=== PATIENT | female | born 1935 | race Caucasian/White ===

== ENCOUNTER 2018-09-15 05:22 | Inpatient (IN) | payer MEDICARE, BC ==
[2018-09-15] VITALS (62 sets, daily range): BP systolic 63–144; BP diastolic 35–101; PULSE 62–128; RESP 9–27; Ht 157.5 cm; Wt 51.2 kg
[~2018-09-15] VITALS: Ht 157.5 cm; Wt 51.2 kg
--- NOTE | 2018-09-15 06:07 | HPN ---
Date/Time of Note Date/Time of Note DATE: 09/15/18 TIME: 06:07 Interval H&P Admission Note Pt. seen H&P reviewed: No system changes CHELE GRIFFIN MD Sep 15, 2018 06:07
[2018-09-15] MEDS ORDERED: ESTR1TAB23 PO (06:45)
[2018-09-15] MEDS ORDERED: ZOC10 PO (06:45)
--- NOTE | 2018-09-15 06:58 | PREAC ---
Date/Time of Note Date/Time of Note DATE: 09/15/18 TIME: 06:52 Anesthesia Eval and Record Evaluation Time Pre-Procedure Interview DATE: 09/15/18 TIME: 06:52 Age 83 Sex female NPO: 8 hrs Preoperative diagnosis right shoulder rotator cuff tear Planned procedure operative arthroscopy, extensive debridement, decompression, michelle precedure, rotator cuff repair, right shoulder Past Medical History Past Medical History: Includes Cardio: Dyslipidemia Musculoskeletal: Osteoarthritis Surgery & Anesthesia Issues No known issue Meds Anticoagulation: No Beta Carlene within 24 hr: No Reason Beta Carlene not given: Pt. not on B-Carlene Reported Medications Estradiol* (Estrace*) 1 Mg Tablet, 1 MG PO DAILY, TAB 09/15/18 Simvastatin (Simvastatin) 10 Mg Tablet, 10 MG PO DAILY, #30 TAB 09/15/18 Meds reviewed: Yes Allergies Coded Allergies: No Known Allergy (Unverified , 09/15/18) Allergies Reviewed: Yes Labs/Studies Labs Reviewed: Reviewed by anesthesiologist test: N/A Pre-procedure Exam Last vitals Vital Signs Date Temp Pulse Resp B/P (MAP) Pulse Ox O2 O2 Flow FiO2 Time Delivery Rate 09/15/18 97.9 68 16 131/60 98 Room Air 06:29 (83) Airway: Adequate mouth opening, Adequate thyromental dist Mallampati: Mallampati II Teeth: Normal Lung: Normal Heart: Normal ASA Physical Status ASA physical status: 2 Emergency: None Planned Anesthetic General/MAC: ETT Nerve block: Brachial plexus (right) Planned Pain Management Single shot nerve block, Parenteral pain med Pre-operative Attestations Prior to commencing anesthesia and surgery, the patient was re-evaluated, there was verification of: *The patient's identity *The results of appropriate recent lab work and preoperative vital signs *The above evaluation not changing prior to induction *Anesthetic plan, risk benefits, alternative and complications discussed with patient/family; questions answered; patient/family understands, accepts and wishes to proceed. ABEL HESTER MD Sep 15, 2018 06:58
[2018-09-15] MEDS ORDERED: LACT1CAP17 PO (07:17)
[2018-09-15] MEDS ORDERED: SEVOFLURANE 15 MIN ONE (07:20)
[2018-09-15] MEDS ORDERED: ROPIVACAINE 0.5 % 30 ML VIAL ONE (07:23)
[2018-09-15] MEDS ORDERED: MIDAZOLAM 1 MG/ML 2 ML INJ ONE (07:34)
[2018-09-15] MEDS ORDERED: FENTAnyl 50 MCG/ML VIAL ONE ×2 (07:38→07:39)
[2018-09-15] MEDS ORDERED: PHENYLephrine (100 MCG/ML) 10ML SYG ONE (07:52)
[2018-09-15] MEDS ORDERED: DEXAMETHASONE 4 MG/ML 5 ML INJ ONE (08:07)
[2018-09-15] MEDS ORDERED: ONDANSETRON 4 MG INJ ONE (08:07)
[2018-09-15] MEDS ORDERED: FAMOTIDINE 20 MG INJ ONE (08:10)
[2018-09-15] MEDS ORDERED: EPHEDrine 25 MG/5 ML SYG ONE (08:13)
[2018-09-15] MEDS ORDERED: ROCURONIUM 50 MG INJ ONE (08:14)
[2018-09-15] MEDS ORDERED: SUCCINYLCHOLINE CHLORIDE 100 MG/5 ML SYG IV ONE (08:14)
[2018-09-15] MEDS ORDERED: LIDOCAINE 2% (SDV) 5 ML INJ ONE (08:14)
[2018-09-15] MEDS ORDERED: PROPOFOL 20 ML ONE (08:14)
[2018-09-15] MEDS ORDERED: CEFAZOLIN 1 GM INJ ONE ×2 (08:40→11:29)
[2018-09-15] MEDS ORDERED: POVIDONE IODINE 10% 28.4 GM OINT ONE (09:55)
[2018-09-15] MEDS ORDERED: OXYCODONE/ACETAMINOPHEN (5/325) TAB PO PRN (10:30)
[2018-09-15] MEDS ORDERED: EPHEDrine 25 MG/5 ML SYG IV PRN (10:30)
[2018-09-15] MEDS ORDERED: FENTAnyl 50 MCG/ML VIAL IV PRN (10:30)
[2018-09-15] MEDS ORDERED: ONDANSETRON 4 MG INJ IV PRN ×2 (10:30→12:00)
[2018-09-15] MEDS ORDERED: MEPERIDINE 25 MG INJ IV PRN (10:30)
[2018-09-15] MEDS ORDERED: DIPHENHYDRAMINE 50 MG INJ IV PRN (10:30)
[2018-09-15] MEDS ORDERED: HYDROmorphONE 1 MG/5 ML IV SYRINGE IV PRN (10:30)
[2018-09-15] MEDS ORDERED: NEOSTIGMINE 3 MG/3 ML SYRINGE ONE (11:29)
[2018-09-15] MEDS ORDERED: GLYCOPYRROLATE 0.4 MG INJ ONE (11:29)
[2018-09-15] MEDS: SOD CHLORIDE 0.9% 1,000 ML IV SCH ×2 (11:43→23:27)
--- NOTE | 2018-09-15 11:43 | OPPN ---
Date/Time of Note Date/Time of Note DATE: 09/15/18 TIME: 11:41 Operative Report Preoperative Diagnosis Right shoulder rotator cuff tear, AC arthritis, biceps tear Postoperative Diagnosis same Operation/Procedure Performed Right shoulder SMITHA, michelle VAZQUEZ, rotator cuff repair with 3 anchors Surgeon see signature line clinical research assistant MD Shar Anesthesia: general, other Estimated blood loss: minimal Transfusion Required none Specimen none Grafts/Implants 3 x threvo anchors Complications none CHELE GRIFFIN MD Sep 15, 2018 11:43
[2018-09-15] MEDS ORDERED: BISACODYL 10 MG SUPP PR PRN (12:00)
[2018-09-15] MEDS ORDERED: morphine 10 MG INJ IV PRN (12:00)
[2018-09-15] MEDS ORDERED: HYDROmorphONE 0.2 MG/ML PCA IV SCH ×2 (12:00→12:40)
[2018-09-15] MEDS ORDERED: DIPHENHYDRAMINE 25 MG CAP PO PRN (12:00)
--- NOTE | 2018-09-15 12:01 | PAC ---
Date/Time of Note Date/Time of Note DATE: 09/15/18 TIME: 12:00 Post-Anesthesia Notes Post-Anesthesia Note Last documented vital signs Vital Signs Date Temp Pulse Resp B/P (MAP) Pulse Ox O2 O2 Flow FiO2 Time Delivery Rate 09/15/18 97.9 68 16 131/60 98 Room Air 06:29 (83) Activity: WNL Respiratory function: WNL Cardiovascular function: WNL Mental status: Baseline Pain reasonably controlled: Yes Hydration appropriate: Yes Nausea/Vomiting absent: Yes Comments BP: 139/70 HR: 80 RR: 15 T: 97.8 SaO2: 100% ABEL HESTER MD Sep 15, 2018 12:01
[2018-09-15] MEDS: HYDROmorphONE 1 MG/5 ML IV SYRINGE IV PRN ×3 (12:10→12:23)
[2018-09-15] MEDS: CEFAZOLIN 1 GM/50 ML (PMX) 50 ML IVPB SCH ×2 (12:23→21:08)
[2018-09-15] MEDS ORDERED: ALBUMIN HUMAN 5% 250 ML ONE (14:12)
[2018-09-15] MEDS ORDERED: ALBUMIN HUMAN 5% 250 ML IV ONE (14:30)
[2018-09-15] MEDS ORDERED: SOD CHLORIDE 0.9% 250 ML IV ONE (15:00)
[2018-09-15] MEDS ORDERED: PHENYLephrine 20MG IN 250 ML 250 ML IV SCH (15:30)
--- NOTE | 2018-09-15 15:45 | CONS ---
Assessment/Plan Assessment/Plan Assessment/Plan (Daily) Med consult dict Post op rapid atrial fib and assoc hypotension. W/U in progress. Mg, TSH, Troponin, echo. Always concern for PE, NIVVS ordered. Family member has MTFHR gene mutation. Will quiz her if she has been tested. No hx prior arrhythmia, DVT, PE, coronary dz, HBP. Consultation Date/Type/Reason Admit Date/Time Sep 15, 2018 at 11:43 Date/Time of Note DATE: 09/15/18 TIME: 15:43 Past Medical History Home Meds Reported Medications Lactobac Cmb #3/Fos/Pantethine (PROBIOTIC & ACIDOPHILUS CAP) 1 Each Capsule, 1 CAP PO DAILY, CAP 09/15/18 Estradiol* (Estrace*) 1 Mg Tablet, 1 MG PO DAILY, TAB 09/15/18 Simvastatin (Simvastatin) 10 Mg Tablet, 5 MG PO DAILY, #30 TAB 09/15/18 Medications Current Medications Senna/Docusate Sodium (Senokot-S) 1 tab BID PO ; Start 09/15/18 at 21:00 Magnesium Hydroxide (Milk Of Mag) 30 ml HS PO ; Start 09/17/18 at 21:00 Bisacodyl (Dulcolax Supp) 10 mg DAILY PRN [place] CONSTIPATION; Start 09/15/18 at 12:00 Sodium Chloride 1,000 ml @ 100 mls/hr Q10H IV Last administered on 09/15/18at 11:43; Admin Dose 100 MLS/HR; Start 09/15/18 at 11:43 Oxycodone/ Acetaminophen (Percocet (5/ 325)) 2 tab Q4H PRN PO PAIN; Start 09/15/18 at 12:00 Morphine Sulfate (morphine) 5 mg Q4H PRN IV PAIN LEVEL 7-10; Start 09/15/18 at 12:00 Cefazolin Sodium 50 ml @ 100 mls/hr Q8H IVPB Last administered on 09/15/18at 12:23; Admin Dose 100 MLS/HR; Start 09/15/18 at 12:00; Stop 09/17/18 at 04:29 Ondansetron HCl (Zofran Inj) 4 mg Q4H PRN IV NAUSEA AND/OR VOMITING; Start 09/15/18 at 12:00 Diphenhydramine HCl (Benadryl) 25 mg Q4H PRN PO ITCHING; Start 09/15/18 at 12:00 Rivaroxaban (Xarelto) 10 mg WITH DINNER PO ; Start 09/16/18 at 18:00 Hydromorphone HCl (Dilaudid CONTROL OPERATOR FLOW COAT) 0.2 MG LOAD 0 MG/ ... Q4PCA IV Last administered on 09/15/18at 13:09; Admin Dose 6 MG; Start 09/15/18 at 12:40 Sodium Chloride 250 ml @ 250 mls/hr Q1H ONCE IV Last administered on 09/15/18at 15:00; Admin Dose 250 MLS/HR; Start 09/15/18 at 15:00; Stop 09/15/18 at 15:59 Phenylephrine HCl 250 ml @ 75 mls/hr TITRATE IV ; Start 09/15/18 at 15:30 Estradiol (Estrace) 1 mg DAILY PO ; Start 09/16/18 at 09:00 Atorvastatin Calcium (Lipitor) 10 mg DAILY@21 PO ; Start 09/15/18 at 21:00 Allergies: Coded Allergies: No Known Allergy (Unverified , 09/15/18) Social History Smoking Status: Never smoker Exam/Review of Systems Exam Vitals Vital Signs Date Temp Pulse Resp B/P (MAP) Pulse Ox O2 O2 Flow FiO2 Time Delivery Rate 09/15/18 106 12 69/49 (56) 98 Mask 14:38 Nasal Cannula 09/15/18 97.8 13:34 Results Result Diagram: 09/15/18 1514 Results 24hrs Laboratory Tests Test 09/15/18 15:14 White Blood Count 7.8 Red Blood Count 3.81 L Hemoglobin 11.0 L Hematocrit 34.7 L Mean Corpuscular Volume 91.1 Mean Corpuscular Hemoglobin 28.9 L Mean Corpuscular Hemoglobin Concent 31.7 L Red Cell Distribution Width 13.3 Platelet Count 166 Mean Platelet Volume 11.0 H Immature Granulocytes % 0.600 H Neutrophils % 89.5 H Lymphocytes % 8.0 L Monocytes % 1.4 Eosinophils % 0.1 Basophils % 0.4 Nucleated Red Blood Cells % 0.0 Immature Granulocytes # 0.050 H Neutrophils # 7.0 Lymphocytes # 0.6 L Monocytes # 0.1 L Eosinophils # 0.0 Basophils # 0.0 Nucleated Red Blood Cells # 0.0 Magnesium Level 1.7 Troponin I Pending Thyroid Stimulating Hormone (TSH) Pending Medications Medication Current Medications Senna/Docusate Sodium (Senokot-S) 1 tab BID PO ; Start 09/15/18 at 21:00 Magnesium Hydroxide (Milk Of Mag) 30 ml HS PO ; Start 09/17/18 at 21:00 Bisacodyl (Dulcolax Supp) 10 mg DAILY PRN [place] CONSTIPATION; Start 09/15/18 at 12:00 Sodium Chloride 1,000 ml @ 100 mls/hr Q10H IV Last administered on 09/15/18at 11:43; Admin Dose 100 MLS/HR; Start 09/15/18 at 11:43 Oxycodone/ Acetaminophen (Percocet (5/ 325)) 2 tab Q4H PRN PO PAIN; Start 09/15/18 at 12:00 Morphine Sulfate (morphine) 5 mg Q4H PRN IV PAIN LEVEL 7-10; Start 09/15/18 at 12:00 Cefazolin Sodium 50 ml @ 100 mls/hr Q8H IVPB Last administered on 09/15/18at 12:23; Admin Dose 100 MLS/HR; Start 09/15/18 at 12:00; Stop 09/17/18 at 04:29 Ondansetron HCl (Zofran Inj) 4 mg Q4H PRN IV NAUSEA AND/OR VOMITING; Start 09/15/18 at 12:00 Diphenhydramine HCl (Benadryl) 25 mg Q4H PRN PO ITCHING; Start 09/15/18 at 12:00 Rivaroxaban (Xarelto) 10 mg WITH DINNER PO ; Start 09/16/18 at 18:00 Hydromorphone HCl (Dilaudid CONTROL OPERATOR FLOW COAT) 0.2 MG LOAD 0 MG/ ... Q4PCA IV Last administered on 09/15/18at 13:09; Admin Dose 6 MG; Start 09/15/18 at 12:40 Sodium Chloride 250 ml @ 250 mls/hr Q1H ONCE IV Last administered on 09/15/18at 15:00; Admin Dose 250 MLS/HR; Start 09/15/18 at 15:00; Stop 09/15/18 at 15:59 Phenylephrine HCl 250 ml @ 75 mls/hr TITRATE IV ; Start 09/15/18 at 15:30 Estradiol (Estrace) 1 mg DAILY PO ; Start 09/16/18 at 09:00 Atorvastatin Calcium (Lipitor) 10 mg DAILY@21 PO ; Start 09/15/18 at 21:00 FRED MARKS MD Sep 15, 2018 15:45
--- NOTE | 2018-09-15 16:46 | CONS ---
DATE OF ADMISSION: 09/15/2018 DATE OF CONSULTATION: 09/15/2018 TYPE OF CONSULTATION: Medical. Dear Dr. Griffin: Thank you very much for allowing me to evaluate this 83-year-old female who is postop right shoulder rotator cuff repair, who has now developed rapid atrial fibrillation and hypotension. HISTORICAL EVENTS: As you well know, this patient did suffer an injury to her right shoulder and has had ongoing pain for at least a year. Your evaluation revealed a supraspinatus tendon tear and lanie ps tendon tear. A steroid injection provided no significant relief and because of continued pain and restriction in motion, elected to proceed with your recommended surgical intervention. The surgery was uncomplicated per you and she was transferred to recovery. It was while in recovery she suddenly developed a rapid atrial fibrillation at a rate of 120 to 140 and associated hypotension. She has r eceived normal saline at a high flow rate and with this, her fibrillation ventricular response has de creased to about 100 to 110. She presently denies any shortness of breath, chest pain, palpitations, nausea, vomiting, or abdominal pain. Questioning her daughter reveals no prior history of irregular heartbeat, coronary artery disease, diabetes, pulmonary embolism or blood clots. MEDICATIONS: Prior to admission includes: 1. Fluconazole as needed. 2. Xanax 0.25 b.i.d. p.r.n. 3. Zocor 5 mg per day. 4. Atrovent as needed. 5. Estradiol 1 mg per day. 6. Prolia. 7. Naprosyn p.r.n. 8. Zantac 150 at night. PAST MEDICAL HISTORY: 1. Sleep disorder. 2. Gastroesophageal reflux. 3. Hyperlipidemia. 4. Mild aortic and moderate mitral regurgitation. 5. History of sinus bradycardia. 6. Spinal stenosis. 7. History of vasovagal syndrome. PAST SURGICAL HISTORY: Having had a prior appendectomy, bladder suspension and blepharoplasty, bebeto cystectomy, abdominal hysterectomy, lumbar rhizotomy and tonsillectomy. SOCIAL HISTORY: She is . She does not smoke. 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 She does drink alcohol. ALLERGIES: NONE. FAMILY HISTORY: Positive for parkinsonism and stroke as well as factor V Leiden mutation. PHYSICAL EXAMINATION: GENERAL: [place] female in no acute distress. VITAL SIGNS: BP 82/70, pulse irregularly irregular at 106, respirations were 18. She was afebrile. EYES: Extraocular muscles were full. NOSE, MOUTH, AND THROAT: Normal. NECK: Supple. There was no jugular venous distention, thyroid enlargement or adenopathy. Carotids 2+, no bruits. LUNGS: Clear. HEART: Rhythm irregularly irregular. No murmur. No third or fourth sound. ABDOMEN: Nontender. Liver and spleen were not palpable. No mass or tenderness were noted. EXTREMITIES: No edema and no calf tenderness. IMPRESSION: Unstable post right shoulder surgical intervention with now rapid atrial fibrillation that has slowed a bit with normal saline and hypotension. I have reviewed this with cardiology, Dr. Delvalle, and we both agree that the degree of her atrial fibrillation does not account for her hypotension. Until ec hocardiography is obtained, we will support her blood pressure with Jovanni-Synephrine, give her addition al isotonic volume expansion and I will obtain a venous vascular studies. Troponin has been ordered along with TSH and mag. We will follow with you. Dictated By: FRED CAMERON/TRISHA Conf#: [id number] DID#: [id number] CC: CHELE GRIFFIN MD;*EndCC*
--- NOTE | 2018-09-15 18:03 | CONS ---
Assessment/Plan Assessment/Plan Hospital Course (Demo Recall) New onset postoperative atrial fibrillation Postoperative hypotension Status post orthopedic shoulder surgery Patient postoperatively with hypotension and atrial fibrillation. Blood pressure improved initially with IV fluids but then recurrent hypotension. Central line was placed and start on IV pressor of Jovanni-Synephrine. IV pressor requirements are decreasing. Atrial fibrillation is unlikely the etiology of hypotension. Preliminary echocardiogram with normal left ventricular ejection fraction, initial CBC with no significant abnormalities. Titrate IV pressor to maintain SBP greater than 90 and/or map above 60. Patient plan for CT pulmonary angiogram to rule out pulmonary emboli Would hold on any AV aneta blocking agents and current time Check serial CBCs Consultation Date/Type/Reason Admit Date/Time Sep 15, 2018 at 11:43 Type of Consult Cardiology Reason for Consultation Atrial fibrillation and hypertension Date/Time of Note DATE: 09/15/18 TIME: 17:56 Hx of Present Illness This is an 83-year-old female with no significant past medical history who un derwent elective orthopedic surgery of her right shoulder. Postoperatively, patient with hypotension new onset atrial fibrillation. Patient was given IV fluids with mild improvement in hypotension and heart rates but recurrent hypotension was noted. Patient did have a central line placed and IV pressors were started. She denies any current chest pain, shortness of breath, palpitations. She does mention intermittent palpitations in the morning time is been going on over the past few weeks to months. She otherwise denies exertional chest pain or shortness of breath. Denies any dizziness or lightheadedness. 12 point review of systems was performed with all pertinent positives and negatives mentioned above and all else is negative Past Medical History Mild mitral aortic valve regurgitation Dyslipidemia Home Meds Reported Medications Lactobac Cmb #3/Fos/Pantethine (PROBIOTIC & ACIDOPHILUS CAP) 1 Each Capsule, 1 CAP PO DAILY, CAP 09/15/18 Estradiol* (Estrace*) 1 Mg Tablet, 1 MG PO DAILY, TAB 09/15/18 Simvastatin (Simvastatin) 10 Mg Tablet, 5 MG PO DAILY, #30 TAB 09/15/18 Medications Current Medications Senna/Docusate Sodium (Senokot-S) 1 tab BID PO ; Start 09/15/18 at 21:00 Magnesium Hydroxide (Milk Of Mag) 30 ml HS PO ; Start 09/17/18 at 21:00 Bisacodyl (Dulcolax Supp) 10 mg DAILY PRN [place] CONSTIPATION; Start 09/15/18 at 12:00 Sodium Chloride 1,000 ml @ 100 mls/hr Q10H IV Last administered on 09/15/18at 11:43; Admin Dose 100 MLS/HR; Start 09/15/18 at 11:43 Oxycodone/ Acetaminophen (Percocet (5/ 325)) 2 tab Q4H PRN PO PAIN; Start 09/15/18 at 12:00 Morphine Sulfate (morphine) 5 mg Q4H PRN IV PAIN LEVEL 7-10; Start 09/15/18 at 12:00 Cefazolin Sodium 50 ml @ 100 mls/hr Q8H IVPB Last administered on 09/15/18at 12:23; Admin Dose 100 MLS/HR; Start 09/15/18 at 12:00; Stop 09/17/18 at 04:29 Ondansetron HCl (Zofran Inj) 4 mg Q4H PRN IV NAUSEA AND/OR VOMITING; Start 09/15/18 at 12:00 Diphenhydramine HCl (Benadryl) 25 mg Q4H PRN PO ITCHING; Start 09/15/18 at 12:00 Rivaroxaban (Xarelto) 10 mg WITH DINNER PO ; Start 09/16/18 at 17:35 Hydromorphone HCl (Dilaudid NAIL POLISH BRUSH MACHINE FEEDER) 0.2 MG LOAD 0 MG/ ... 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) Family History Significant Family History: no pertinent family hx Social History Smoking Status: Never smoker Exam/Review of Systems Vital Signs Vitals Vital Signs Date Temp Pulse Resp B/P (MAP) Pulse Ox O2 O2 Flow FiO2 Time Delivery Rate 09/15/18 104 16:00 09/15/18 16 75/44 (54) 88 Mask 15:23 09/15/18 8.0 15:18 09/15/18 97.8 13:34 Exam Constitutional: alert, oriented (Falling asleep at times, no apparent distress, family at bedside) Head: normocephalic Respiratory: other (Coarse breath sounds bilaterally, no wheezing) Cardiovascular: irregular rhythm (S1-S2 heard) Gastrointestinal: soft, non-tender, bowel sounds Extremities: other (No significant edema) Labs Result Diagram: 09/15/18 1514 09/15/18 1514 Results 24hrs Laboratory Tests Test 09/15/18 15:14 White Blood Count 7.8 Red Blood Count 3.81 L Hemoglobin 11.0 L Hematocrit 34.7 L Mean Corpuscular Volume 91.1 Mean Corpuscular Hemoglobin 28.9 L Mean Corpuscular Hemoglobin Concent 31.7 L Red Cell Distribution Width 13.3 Platelet Count 166 Mean Platelet Volume 11.0 H Immature Granulocytes % 0.600 H Neutrophils % 89.5 H Lymphocytes % 8.0 L Monocytes % 1.4 Eosinophils % 0.1 Basophils % 0.4 Nucleated Red Blood Cells % 0.0 Immature Granulocytes # 0.050 H Neutrophils # 7.0 Lymphocytes # 0.6 L Monocytes # 0.1 L Eosinophils # 0.0 Basophils # 0.0 Nucleated Red Blood Cells # 0.0 Sodium Level 146 H Potassium Level 3.4 L Chloride Level 117 H Carbon Dioxide Level 21 Anion Gap 8 Blood Urea Nitrogen 14 Creatinine 0.57 Est Glomerular Filtrat Rate mL/min Glucose Level 139 Calcium Level 7.9 L Magnesium Level 1.7 Troponin I < 0.012 Thyroid Stimulating Hormone (TSH) 0.822 Imaging Imaging ECG atrial fibrillation at 106 bpm, normal QRS duration, nonspecific ST abnormalities Medications Medications Current Medications Senna/Docusate Sodium (Senokot-S) 1 tab BID PO ; Start 09/15/18 at 21:00 Magnesium Hydroxide (Milk Of Mag) 30 ml HS PO ; Start 09/17/18 at 21:00 Bisacodyl (Dulcolax Supp) 10 mg DAILY PRN [place] CONSTIPATION; Start 09/15/18 at 12:00 Sodium Chloride 1,000 ml @ 100 mls/hr Q10H IV Last administered on 09/15/18at 11:43; Admin Dose 100 MLS/HR; Start 09/15/18 at 11:43 Oxycodone/ Acetaminophen (Percocet (5/ 325)) 2 tab Q4H PRN PO PAIN; Start at 12:00 Morphine Sulfate (morphine) 5 mg Q4H PRN IV PAIN LEVEL 7-10; Start 09/15/18 at 12:00 Cefazolin Sodium 50 ml @ 100 mls/hr Q8H IVPB Last administered on 09/15/18at 12:23; Admin Dose 100 MLS/HR; Start 09/15/18 at 12:00; Stop 09/17/18 at 04:29 Ondansetron HCl (Zofran Inj) 4 mg Q4H PRN IV NAUSEA AND/OR VOMITING; Start 09/15/18 at 12:00 Diphenhydramine HCl (Benadryl) 25 mg Q4H PRN PO ITCHING; Start 09/15/18 at 12:00 Rivaroxaban (Xarelto) 10 mg WITH DINNER PO ; Start 09/16/18 at 17:35 Hydromorphone HCl (Dilaudid NAIL POLISH BRUSH MACHINE FEEDER) 0.2 MG LOAD 0 MG/ ... Q4PCA IV Last administered on 09/15/18at 13:09; Admin Dose 6 MG; Start 09/15/18 at 12:40 Phenylephrine HCl 250 ml @ 75 mls/hr TITRATE IV Last administered on 09/15/18at 16:32; Admin Dose 75 MLS/HR; Start 09/15/18 at 15:30 Estradiol (Estrace) 1 mg DAILY PO ; Start 09/16/18 at 09:00 Atorvastatin Calcium (Lipitor) 10 mg DAILY@21 PO ; Start 09/15/18 at 21:00 Christian Delvalle DO Sep 15, 2018 18:03
--- NOTE | 2018-09-15 18:10 | RADRPT ---
Echocardiogram Report Patient Name: JAMAL MARTINEZPatient ID: [id number] : 1935 (83y 3m)Study Date: 09/15/2018 3:18:42 PM Gender: FAccession #: [id number] Tech: Idalia Alarcon RDCS Location: PACU Ref.Physician: CHRISTIAN DELVALLE Height(Cm): BSA: Weight(Kg): Quality: Technically Difficult StudyOrder Physician: CHRISTIAN DELVALLE Account #: Procedures: Echocardiographic Report: Transthoracic echocardiogram with complete 2D, M-Mode, and doppler examination. Indications: Hypotension. Measurements: 2D/M Mode Doppler Measurement Value Normal Range Measurement Value Normal Range LVIDd 2D 3.8 [ 3.8 - 5.2 ] cm AV Peak Jules 1.1 [ 100.0 - 170.0 ] cm/sec LVIDs 2D 1.9 [ 2.2 - 3.5 ] cm AV Peak PG 5.0 [ 2.0 - 9.0 ] mmHg LVPWd 2D 1.0 [ 0.6 - 0.9 ] cm LVOT Peak Jules 0.8 [ 70.0 - 110.0 ] cm/sec IVSd 2D 0.9 [ 0.6 - 0.9 ] cm LVOT Peak PG 2.0 [ 2.0 - 6.0 ] mmHg AoR Diam 2D 2.9 [ 2.3 - 3.1 ] cm TR Peak Jules 2.9 [ 100.0 - 280.0 ] cm/sec EDV 2D 63.5 [ 46.0 - 106.0 ] ml TR Peak PG 34.0 mmHg ESV 2D 11.8 [ 14.0 - 42.0 ] ml RVSP 37.0 [ 10.0 - 36.0 ] mmHg EF 2D 81.4 [ 54.0 - 74.0 ] percent RA Pressure 3.0 mmHg LA Dimen 2D 3.6 [ 2.7 - 3.8 ] cm Findings: Left Ventricle: Hyperdynamic left ventricular systolic function. Normal left ventricular cavity size. Normal left ventricular wall thickness. Ejection fraction is visually estimated at 70 %. Abnormal Diastolic Function. Right Ventricle: Normal right ventricular size. Normal right ventricular systolic function. Left Atrium: The left atrium is normal in size. Right Atrium: The right atrium is normal in size. Mitral Valve: Mitral valve leaflets appear mildly thickened. Mild mitral valve regurgitation. Aortic Valve: No hemodynamically significant aortic stenosis by doppler. Aortic cusps appear mildly calcified. Trace aortic valve regurgitation. Tricuspid Valve: Normal appearance of the tricuspid valve. The estimated Peak RVSP is 37 mmHg. There is mild to moderate tricuspid regurgitation. Pulmonic Valve: Pulmonic valve not well visualized. Pericardium: Normal pericardium with no significant pericardial effusion. Aorta: Normal aortic root. IVC: Normal size and normal respiratory collapse consistent with normal right atrial pressure. Conclusions: Hyperdynamic left ventricular systolic function. Normal left ventricular cavity size. Normal left ventricular wall thickness. Ejection fraction is visually estimated at 70 %. Abnormal Diastolic Function. Normal right ventricular size. Normal right ventricular systolic function. The left atrium is normal in size. The right atrium is normal in size. Mild mitral valve regurgitation. No hemodynamically significant aortic stenosis by doppler. Trace aortic valve regurgitation. The estimated Peak RVSP is 37 mmHg. There is mild to moderate tricuspid regurgitation. Normal pericardium with no significant pericardial effusion. Electronically Signed By: Christian Delvalle 2018-09-15 18:10:27 PDT
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
[2018-09-15] MEDS ORDERED: SOD CHLORIDE 0.9% 100 ML ONE (18:50)
[2018-09-15] MEDS: SENNA/DOCUSATE NA (8.6MG/50MG) TAB PO SCH (21:00)
[2018-09-15] MEDS ORDERED: ALPRAZOLAM 0.25 MG TAB PO PRN (21:00)
[2018-09-15] MEDS: ATORVASTATIN 10 MG TAB PO SCH (21:00)
[2018-09-15] MEDS ORDERED: ASPIRIN 81 MG TAB PO ONE (21:00)
[2018-09-16] VITALS (30 sets, daily range): BP systolic 87–120; BP diastolic 39–61; PULSE 62–88; RESP 11–27
[2018-09-16] MEDS: CEFAZOLIN 1 GM/50 ML (PMX) 50 ML IVPB SCH ×3 (04:52→20:12)
[2018-09-16] MEDS ORDERED: POTASSIUM CHLORIDE (SR) 20 MEQ TAB PO STA (07:23)
[2018-09-16] MEDS ORDERED: MAGNESIUM SULFATE 3 GM in DEXTROSE 5% 100 ML IVPB ONE ×2 (07:30→08:30)
[2018-09-16] MEDS: OXYCODONE/ACETAMINOPHEN (5/325) TAB PO PRN ×3 (07:53→20:31)
[2018-09-16] MEDS: SENNA/DOCUSATE NA (8.6MG/50MG) TAB PO SCH ×2 (08:05→20:12)
--- NOTE | 2018-09-16 08:11 | CONS ---
Assessment/Plan Assessment/Plan Assessment/Plan (Daily) 1. Post op a fib, now in sinus rhythm, CT pul angio and nivvs was neg, echocardiogram noted 2. Elevated Trop, await cards eval, trend is "up" 3. Right shoulder surgery, stable 4. Low Mag and K+-will replete 5. Hyperlipidemia, on rx Consultation Date/Type/Reason Admit Date/Time Sep 15, 2018 at 15:23 Initial Consult Date Date/Time of Note DATE: 09/16/18 TIME: 08:09 Detailed Summary Respiratory: No cough, No shortness of breath Cardiovascular: No chest pain Gastrointestinal: no complaints Genitourinary: no complaints Musculoskeletal: other (right shoulder pain) Exam/Review of Systems Exam Vitals Vital Signs Date Temp Pulse Resp B/P (MAP) Pulse Ox O2 O2 Flow FiO2 Time Delivery Rate 09/16/18 84 15 115/43 95 08:00 (67) 09/16/18 Room Air 07:00 09/16/18 2.0 06:00 09/16/18 97.0 04:00 Intake and Output 09/15/18 09/15/18 09/16/18 1515:00 23:00 07:00 IntakeIntake Total 1000 ml 820.0 ml 900 ml OutputOutput Total 20 ml 550 ml 200 ml BalanceBalance 980 ml 270.0 ml 700 ml Neck: No jvd Respiratory: clear to auscultation Cardiovascular: regular rate and rhythm Gastrointestinal: soft Extremities: No edema, No tenderness Results Result Diagram: 09/16/18 0430 09/16/18 0430 Results 24hrs Laboratory Tests Test 09/15/18 15:14 09/15/18 18:59 09/16/18 04:30 White Blood Count 7.8 13.1 #H 9.2 # Red Blood Count 3.81 L 3.58 L 3.03 L Hemoglobin 11.0 L 10.6 L 9.0 L Hematocrit 34.7 L 32.8 L 28.0 L Mean Corpuscular Volume 91.1 91.6 92.4 Mean Corpuscular Hemoglobin 28.9 L 29.6 29.7 Mean Corpuscular Hemoglobin Concent 31.7 L 32.3 32.1 Red Cell Distribution Width 13.3 13.2 13.5 Platelet Count 166 243 # 182 # Mean Platelet Volume 11.0 H 11.2 H 11.1 H Immature Granulocytes % 0.600 H 0.500 H 0.400 Neutrophils % 89.5 H 91.1 H 80.1 H Lymphocytes % 8.0 L 5.3 L 11.5 L Monocytes % 1.4 2.9 7.9 Eosinophils % 0.1 0.0 0.0 Basophils % 0.4 0.2 0.1 Nucleated Red Blood Cells % 0.0 0.0 0.0 Immature Granulocytes # 0.050 H 0.060 H 0.040 H Neutrophils # 7.0 12.0 H 7.4 Lymphocytes # 0.6 L 0.7 L 1.1 Monocytes # 0.1 L 0.4 0.7 Eosinophils # 0.0 0.0 0.0 Basophils # 0.0 0.0 0.0 Nucleated Red Blood Cells # 0.0 0.0 0.0 Sodium Level 146 H 144 144 Potassium Level 3.4 L 3.8 3.6 Chloride Level 117 H 114 H 117 H Carbon Dioxide Level 21 23 25 Anion Gap 8 7 2 L Blood Urea Nitrogen 14 13 12 Creatinine 0.57 0.51 0.55 Est Glomerular Filtrat Rate mL/min Glucose Level 139 140 93 # Calcium Level 7.9 L 7.5 L 7.1 L Magnesium Level 1.7 1.6 L Troponin I < 0.012 0.246 *H 0.611 *H Thyroid Stimulating Hormone (TSH) 0.822 Phosphorus Level 2.9 Creatine Kinase 128 Creatine Kinase Index 5.3 Creatinine Kinase MB (Mass) 6.72 H Medications Medication Current Medications Senna/Docusate Sodium (Senokot-S) 1 tab BID PO ; Start 09/15/18 at 21:00 Magnesium Hydroxide (Milk Of Mag) 30 ml HS PO ; Start 09/17/18 at 21:00 Bisacodyl (Dulcolax Supp) 10 mg DAILY PRN [place] CONSTIPATION; Start 09/15/18 at 12:00 Sodium Chloride 1,000 ml @ 100 mls/hr Q10H IV Last administered on 09/15/18at 23:27; Admin Dose 100 MLS/HR; Start 09/15/18 at 11:43 Oxycodone/ Acetaminophen (Percocet (5/ 325)) 2 tab Q4H PRN PO PAIN Last administered on 09/16/18at 07:53; Admin Dose 2 TAB; Start 09/15/18 at 12:00 Morphine Sulfate (morphine) 5 mg Q4H PRN IV PAIN LEVEL 7-10; Start 09/15/18 at 12:00 Cefazolin Sodium 50 ml @ 100 mls/hr Q8H IVPB Last administered on 09/16/18at 04:52; Admin Dose 100 MLS/HR; Start 09/15/18 at 12:00; Stop 09/17/18 at 04:29 Ondansetron HCl (Zofran Inj) 4 mg Q4H PRN IV NAUSEA AND/OR VOMITING; Start 09/15/18 at 12:00 Diphenhydramine HCl (Benadryl) 25 mg Q4H PRN PO ITCHING; Start 09/15/18 at 12:00 Rivaroxaban (Xarelto) 10 mg WITH DINNER PO ; Start 09/16/18 at 17:35 Hydromorphone HCl (Dilaudid PAVER) 0.2 MG LOAD 0 MG/ ... Q4PCA IV Last administered on 09/15/18at 13:09; Admin Dose 6 MG; Start 09/15/18 at 12:40 Phenylephrine HCl 250 ml @ 75 mls/hr TITRATE IV Last administered on 09/15/18at 16:32; Admin Dose 75 MLS/HR; Start 09/15/18 at 15:30 Estradiol (Estrace) 1 mg DAILY PO ; Start 09/16/18 at 09:00 Atorvastatin Calcium (Lipitor) 10 mg DAILY@21 PO ; Start 09/15/18 at 21:00 Alprazolam (Xanax) 0.125 mg BID PRN PO ANXIETY Last administered on 09/15/18at 21:08; Admin Dose 0.125 MG; Start 09/15/18 at 21:00 Magnesium Sulfate 3 gm/Dextrose 106 ml @ 35.333 mls/ hr ONCE ONCE IVPB ; Start 09/16/18 at 07:30; Stop 09/16/18 at 10:29 FRED MARKS MD Sep 16, 2018 08:10
[2018-09-16] MEDS ORDERED: SIMVASTATIN 5 MG PO SCH (09:00)
[2018-09-16] MEDS: SOD CHLORIDE 0.9% 1,000 ML IV SCH (14:22)
[2018-09-16] MEDS: ESTRADIOL 1 MG TAB PO SCH (14:22)
--- NOTE | 2018-09-16 16:48 | PN ---
Date/Time of Note Date/Time of Note DATE: 09/16/18 TIME: 16:46 Assessment/Plan VTE Prophylaxis Risk score (from [facility])>0 risk: 13 SCD applied (from [facility]): No SCD contraindicated: other Pharmacological prophylaxis: other Lines/Catheters IV Catheter Type (from [facility]): A Line Urinary Cath still in place: No Assessment/Plan Hospital Course 83F sp R shoulder RTC repair with post-op A-fib -Stable from shoulder standpoint -NWB RUE in sling -Ice -Dispo/global care per medicine/cards Result Diagram: 09/16/18 0430 09/16/18 0430 Results 24hrs Laboratory Tests Test 09/15/18 18:59 09/16/18 04:30 09/16/18 10:05 White Blood Count 13.1 #H 9.2 # Red Blood Count 3.58 L 3.03 L Hemoglobin 10.6 L 9.0 L Hematocrit 32.8 L 28.0 L Mean Corpuscular Volume 91.6 92.4 Mean Corpuscular Hemoglobin 29.6 29.7 Mean Corpuscular Hemoglobin Concent 32.3 32.1 Red Cell Distribution Width 13.2 13.5 Platelet Count 243 # 182 # Mean Platelet Volume 11.2 H 11.1 H Immature Granulocytes % 0.500 H 0.400 Neutrophils % 91.1 H 80.1 H Lymphocytes % 5.3 L 11.5 L Monocytes % 2.9 7.9 Eosinophils % 0.0 0.0 Basophils % 0.2 0.1 Nucleated Red Blood Cells % 0.0 0.0 Immature Granulocytes # 0.060 H 0.040 H Neutrophils # 12.0 H 7.4 Lymphocytes # 0.7 L 1.1 Monocytes # 0.4 0.7 Eosinophils # 0.0 0.0 Basophils # 0.0 0.0 Nucleated Red Blood Cells # 0.0 0.0 Sodium Level 144 144 Potassium Level 3.8 3.6 Chloride Level 114 H 117 H Carbon Dioxide Level 23 25 Anion Gap 7 2 L Blood Urea Nitrogen 13 12 Creatinine 0.51 0.55 Est Glomerular Filtrat Rate mL/min Glucose Level 140 93 # Calcium Level 7.5 L 7.1 L Troponin I 0.246 *H 0.611 *H 0.598 *H Phosphorus Level 2.9 Magnesium Level 1.6 L Creatine Kinase 128 132 Creatine Kinase Index 5.3 4.3 Creatinine Kinase MB (Mass) 6.72 H 5.67 H Subjective 24 Hr Interval Summary Free Text/Dictation Converted to sinus overnight. Doing well now. Minimal shoulder pain. Exam/Review of Systems Exam Vitals Vital Signs Date Temp Pulse Resp B/P (MAP) Pulse Ox O2 O2 Flow FiO2 Time Delivery Rate 09/16/18 73 16:00 09/16/18 20 16:00 09/16/18 110/56 99 14:00 (74) 09/16/18 Nasal 13:00 Cannula 09/16/18 2.0 06:00 09/16/18 97.0 04:00 Intake and Output 09/15/18 09/15/18 09/16/18 1515:00 23:00 07:00 IntakeIntake Total 1000 ml 820.0 ml 1000 ml OutputOutput Total 20 ml 550 ml 200 ml BalanceBalance 980 ml 270.0 ml 800 ml Exam NAD, AAOx3 RUE Sling in place SILT MUR +AIN/PIN/Ulnar WWP w/BCR<2 sec all fingers Results Results 24hrs Laboratory Tests Test 09/15/18 18:59 09/16/18 04:30 09/16/18 10:05 White Blood Count 13.1 #H 9.2 # Red Blood Count 3.58 L 3.03 L Hemoglobin 10.6 L 9.0 L Hematocrit 32.8 L 28.0 L Mean Corpuscular Volume 91.6 92.4 Mean Corpuscular Hemoglobin 29.6 29.7 Mean Corpuscular Hemoglobin Concent 32.3 32.1 Red Cell Distribution Width 13.2 13.5 Platelet Count 243 # 182 # Mean Platelet Volume 11.2 H 11.1 H Immature Granulocytes % 0.500 H 0.400 Neutrophils % 91.1 H 80.1 H Lymphocytes % 5.3 L 11.5 L Monocytes % 2.9 7.9 Eosinophils % 0.0 0.0 Basophils % 0.2 0.1 Nucleated Red Blood Cells % 0.0 0.0 Immature Granulocytes # 0.060 H 0.040 H Neutrophils # 12.0 H 7.4 Lymphocytes # 0.7 L 1.1 Monocytes # 0.4 0.7 Eosinophils # 0.0 0.0 Basophils # 0.0 0.0 Nucleated Red Blood Cells # 0.0 0.0 Sodium Level 144 144 Potassium Level 3.8 3.6 Chloride Level 114 H 117 H Carbon Dioxide Level 23 25 Anion Gap 7 2 L Blood Urea Nitrogen 13 12 Creatinine 0.51 0.55 Est Glomerular Filtrat Rate mL/min Glucose Level 140 93 # Calcium Level 7.5 L 7.1 L Troponin I 0.246 *H 0.611 *H 0.598 *H Phosphorus Level 2.9 Magnesium Level 1.6 L Creatine Kinase 128 132 Creatine Kinase Index 5.3 4.3 Creatinine Kinase MB (Mass) 6.72 H 5.67 H Medications Medication Current Medications Senna/Docusate Sodium (Senokot-S) 1 tab BID PO ; Start 09/15/18 at 21:00 Magnesium Hydroxide (Milk Of Mag) 30 ml HS PO ; Start 09/17/18 at 21:00 Bisacodyl (Dulcolax Supp) 10 mg DAILY PRN [place] CONSTIPATION; Start 09/15/18 at 12:00 Sodium Chloride 1,000 ml @ 30 mls/hr Q24H IV Last administered on 09/16/18at 14:22; Admin Dose 30 MLS/HR; Start 09/15/18 at 11:43 Oxycodone/ Acetaminophen (Percocet (5/ 325)) 2 tab Q4H PRN PO PAIN Last administered on 09/16/18at 14:21; Admin Dose 2 TAB; Start 09/15/18 at 12:00 Morphine Sulfate (morphine) 5 mg Q4H PRN IV PAIN LEVEL 7-10; Start 09/15/18 at 12:00 Cefazolin Sodium 50 ml @ 100 mls/hr Q8H IVPB Last administered on 09/16/18at 04:52; Admin Dose 100 MLS/HR; Start 09/15/18 at 12:00; Stop 09/17/18 at 04:29 Ondansetron HCl (Zofran Inj) 4 mg Q4H PRN IV NAUSEA AND/OR VOMITING; Start 09/15/18 at 12:00 Diphenhydramine HCl (Benadryl) 25 mg Q4H PRN PO ITCHING; Start 09/15/18 at 12:00 Rivaroxaban (Xarelto) 10 mg WITH DINNER PO ; Start 09/16/18 at 17:35 Hydromorphone HCl (Dilaudid DISULFURIZER TENDER) 0.2 MG LOAD 0 MG/ ... Q4PCA IV Last administered on 09/15/18at 13:09; Admin Dose 6 MG; Start 09/15/18 at 12:40 Estradiol (Estrace) 1 mg DAILY PO Last administered on 09/16/18at 14:22; Admin Dose 1 MG; Start 09/16/18 at 09:00 Atorvastatin Calcium (Lipitor) 10 mg DAILY@21 PO ; Start 09/15/18 at 21:00 Alprazolam (Xanax) 0.125 mg BID PRN PO ANXIETY Last administered on 09/15/18at 21:08; Admin Dose 0.125 MG; Start 09/15/18 at 21:00 CHELE GRIFFIN MD Sep 16, 2018 16:48
[2018-09-16] MEDS: RIVAROXABAN 10 MG TABLET PO SCH (17:35)
--- NOTE | 2018-09-16 17:55 | CONS ---
Assessment/Plan Assessment/Plan Hospital Course (Demo Recall) New onset postoperative atrial fibrillation, currently sinus rhythm Postoperative hypotension, resolved Preserved left ventricular ejection fraction Mildly elevated troponin, trending down Status post orthopedic shoulder surgery Patient postoperatively with hypotension and atrial fibrillation. Blood pressure currently stable and is returned to sinus rhythm Troponins mildly elevated and trending down, ECG with no significant ischemic abnormalities. This is likely secondary to hypotension and atrial fibrillation with rapid ventricular rates. Given asymptomatic, normal ECG and preserved left ventricular ejection fraction, would consider outpatient ischemic evaluation CT pulmonary angiogram with no evidence of pulmonary emboli Okay to transfer to telemetry Consultation Date/Type/Reason Admit Date/Time Sep 15, 2018 at 15:23 Initial Consult Date Type of Consult Cardiology Date/Time of Note DATE: 09/16/18 TIME: 17:53 24 HR Interval Summary Free Text/Dictation No shortness of breath, chest pain, palpitations or dizziness Exam/Review of Systems Vital Signs Vitals Vital Signs Date Temp Pulse Resp B/P (MAP) Pulse Ox O2 O2 Flow FiO2 Time Delivery Rate 09/16/18 73 16:00 09/16/18 20 16:00 09/16/18 110/56 99 14:00 (74) 09/16/18 Nasal 13:00 Cannula 09/16/18 2.0 06:00 09/16/18 97.0 04:00 Intake and Output 09/15/18 09/15/18 09/16/18 1414:59 22:59 06:59 IntakeIntake Total 1000 ml 720.0 ml 1000 ml OutputOutput Total 20 ml 550 ml 200 ml BalanceBalance 980 ml 170.0 ml 800 ml Exam Constitutional: alert, oriented (No apparent distress) Head: normocephalic Respiratory: other (Coarse breath sounds bilaterally, no wheezing) Cardiovascular: regular rate and rhythm (S1-S2 heard) Gastrointestinal: soft, non-tender, bowel sounds Extremities: other (No significant edema) Labs Result Diagram: 09/16/18 0430 09/16/18 0430 Results 24hrs Laboratory Tests Test 09/15/18 18:59 09/16/18 04:30 09/16/18 10:05 White Blood Count 13.1 #H 9.2 # Red Blood Count 3.58 L 3.03 L Hemoglobin 10.6 L 9.0 L Hematocrit 32.8 L 28.0 L Mean Corpuscular Volume 91.6 92.4 Mean Corpuscular Hemoglobin 29.6 29.7 Mean Corpuscular Hemoglobin Concent 32.3 32.1 Red Cell Distribution Width 13.2 13.5 Platelet Count 243 # 182 # Mean Platelet Volume 11.2 H 11.1 H Immature Granulocytes % 0.500 H 0.400 Neutrophils % 91.1 H 80.1 H Lymphocytes % 5.3 L 11.5 L Monocytes % 2.9 7.9 Eosinophils % 0.0 0.0 Basophils % 0.2 0.1 Nucleated Red Blood Cells % 0.0 0.0 Immature Granulocytes # 0.060 H 0.040 H Neutrophils # 12.0 H 7.4 Lymphocytes # 0.7 L 1.1 Monocytes # 0.4 0.7 Eosinophils # 0.0 0.0 Basophils # 0.0 0.0 Nucleated Red Blood Cells # 0.0 0.0 Sodium Level 144 144 Potassium Level 3.8 3.6 Chloride Level 114 H 117 H Carbon Dioxide Level 23 25 Anion Gap 7 2 L Blood Urea Nitrogen 13 12 Creatinine 0.51 0.55 Est Glomerular Filtrat Rate mL/min Glucose Level 140 93 # Calcium Level 7.5 L 7.1 L Troponin I 0.246 *H 0.611 *H 0.598 *H Phosphorus Level 2.9 Magnesium Level 1.6 L Creatine Kinase 128 132 Creatine Kinase Index 5.3 4.3 Creatinine Kinase MB (Mass) 6.72 H 5.67 H Medications Medications Current Medications Senna/Docusate Sodium (Senokot-S) 1 tab BID PO ; Start 09/15/18 at 21:00 Magnesium Hydroxide (Milk Of Mag) 30 ml HS PO ; Start 09/17/18 at 21:00 Bisacodyl (Dulcolax Supp) 10 mg DAILY PRN [place] CONSTIPATION; Start 09/15/18 at 12:00 Sodium Chloride 1,000 ml @ 30 mls/hr Q24H IV Last administered on 09/16/18at 14:22; Admin Dose 30 MLS/HR; Start 09/15/18 at 11:43 Oxycodone/ Acetaminophen (Percocet (5/ 325)) 2 tab Q4H PRN PO PAIN Last administered on 09/16/18at 14:21; Admin Dose 2 TAB; Start 09/15/18 at 12:00 Morphine Sulfate (morphine) 5 mg Q4H PRN IV PAIN LEVEL 7-10; Start 09/15/18 at 12:00 Cefazolin Sodium 50 ml @ 100 mls/hr Q8H IVPB Last administered on 09/16/18at 04:52; Admin Dose 100 MLS/HR; Start 09/15/18 at 12:00; Stop 09/17/18 at 04:29 Ondansetron HCl (Zofran Inj) 4 mg Q4H PRN IV NAUSEA AND/OR VOMITING Last administered on 09/16/18at 17:16; Admin Dose 4 MG; Start 09/15/18 at 12:00 Diphenhydramine HCl (Benadryl) 25 mg Q4H PRN PO ITCHING; Start 09/15/18 at 12:00 Rivaroxaban (Xarelto) 10 mg WITH DINNER PO ; Start 09/16/18 at 17:35 Hydromorphone HCl (Dilaudid INDUSTRIAL MANUFACTURING TECHNICIAN) 0.2 MG LOAD 0 MG/ ... Q4PCA IV Last administered on 09/15/18at 13:09; Admin Dose 6 MG; Start 09/15/18 at 12:40 Estradiol (Estrace) 1 mg DAILY PO Last administered on 09/16/18at 14:22; Admin Dose 1 MG; Start 09/16/18 at 09:00 Atorvastatin Calcium (Lipitor) 10 mg DAILY@21 PO ; Start 09/15/18 at 21:00 Alprazolam (Xanax) 0.125 mg BID PRN PO ANXIETY Last administered on 09/15/18at 21:08; Admin Dose 0.125 MG; Start 09/15/18 at 21:00 Christian Delvalle DO Sep 16, 2018 17:55
[2018-09-16] MEDS: ATORVASTATIN 10 MG TAB PO SCH ×2 (20:12→20:26)
[2018-09-17] VITALS: BP 116/59; PULSE 88; RESP 20
[2018-09-17] MEDS: OXYCODONE/ACETAMINOPHEN (5/325) TAB PO PRN ×2 (00:45→05:15)
[2018-09-17 04:00] VITALS: BP 97/55; PULSE 82; RESP 16
[2018-09-17] MEDS: CEFAZOLIN 1 GM/50 ML (PMX) 50 ML IVPB SCH (04:17)
[2018-09-17] MEDS: SOD CHLORIDE 0.9% 1,000 ML IV SCH (05:16)
--- NOTE | 2018-09-17 07:46 | PN ---
Date/Time of Note Date/Time of Note DATE: 09/17/18 TIME: 07:44 Assessment/Plan VTE Prophylaxis Risk score (from Ns)>0 risk: 12 SCD applied (from Ns): No SCD contraindicated: other Pharmacological prophylaxis: apixaban, other Lines/Catheters IV Catheter Type (from Nrsg): Central Line Central line still needed: Yes Urinary Cath still in place: No Assessment/Plan Hospital Course 83F sp R shoulder RTC repair with post-op A-fib -Stable from shoulder standpoint -NWB RUE in sling -Ice -Counseled patient to squeeze ball on sling to work on intrinsic hand strength and to help with swelling -Dressing changed -Dispo/global care per medicine/cards Result Diagram: 09/17/18 0645 09/16/18 0430 Results 24hrs Laboratory Tests Test 09/16/18 10:05 09/17/18 06:45 Creatine Kinase 132 Creatine Kinase Index 4.3 Creatinine Kinase MB (Mass) 5.67 H Troponin I 0.598 *H White Blood Count 7.3 # Red Blood Count 3.13 L Hemoglobin 9.3 L Hematocrit 28.9 L Mean Corpuscular Volume 92.3 Mean Corpuscular Hemoglobin 29.7 Mean Corpuscular Hemoglobin Concent 32.2 Red Cell Distribution Width 13.7 Platelet Count 177 Mean Platelet Volume 11.0 H Immature Granulocytes % 0.300 Neutrophils % 74.7 Lymphocytes % 15.1 Monocytes % 8.6 Eosinophils % 1.0 Basophils % 0.3 Nucleated Red Blood Cells % 0.0 Immature Granulocytes # 0.020 Neutrophils # 5.5 Lymphocytes # 1.1 Monocytes # 0.6 Eosinophils # 0.1 Basophils # 0.0 Nucleated Red Blood Cells # 0.0 Subjective 24 Hr Interval Summary Free Text/Dictation No acute overnight events. Patient transferred to tele. Pain controlled. Exam/Review of Systems Exam Vitals Vital Signs Date Temp Pulse Resp B/P (MAP) Pulse Ox O2 O2 Flow FiO2 Time Delivery Rate 09/17/18 20 05:00 09/17/18 98.7 82 97/55 (69) 96 04:00 09/16/18 Room Air 23:00 09/16/18 2.0 06:00 Intake and Output 09/16/18 09/16/18 09/17/18 1414:59 22:59 06:59 IntakeIntake Total 490 ml 425 ml 740 ml OutputOutput Total 370 ml 550 ml 0 ml BalanceBalance 120 ml -125 ml 740 ml Exam NAD, AAOx3 RUE Sling intact. Dressing with minimal spotting SILT MUR +AIN/PIN/Ulnar motor nerves WWP w BCR < 2 sec all fingers Incisions with steri strips CDI upon removal of dressing. Results Results 24hrs Laboratory Tests Test 09/16/18 10:05 09/17/18 06:45 Creatine Kinase 132 Creatine Kinase Index 4.3 Creatinine Kinase MB (Mass) 5.67 H Troponin I 0.598 *H White Blood Count 7.3 # Red Blood Count 3.13 L Hemoglobin 9.3 L Hematocrit 28.9 L Mean Corpuscular Volume 92.3 Mean Corpuscular Hemoglobin 29.7 Mean Corpuscular Hemoglobin Concent 32.2 Red Cell Distribution Width 13.7 Platelet Count 177 Mean Platelet Volume 11.0 H Immature Granulocytes % 0.300 Neutrophils % 74.7 Lymphocytes % 15.1 Monocytes % 8.6 Eosinophils % 1.0 Basophils % 0.3 Nucleated Red Blood Cells % 0.0 Immature Granulocytes # 0.020 Neutrophils # 5.5 Lymphocytes # 1.1 Monocytes # 0.6 Eosinophils # 0.1 Basophils # 0.0 Nucleated Red Blood Cells # 0.0 Medications Medication Current Medications Senna/Docusate Sodium (Senokot-S) 1 tab BID PO Last administered on 09/16/18at 20:12; Admin Dose 1 TAB; Start 09/15/18 at 21:00 Magnesium Hydroxide (Milk Of Mag) 30 ml HS PO ; Start 09/17/18 at 21:00 Bisacodyl (Dulcolax Supp) 10 mg DAILY PRN [place] CONSTIPATION; Start 09/15/18 at 12:00 Sodium Chloride 1,000 ml @ 30 mls/hr Q24H IV Last administered on 09/17/18at 05:16; Admin Dose 30 MLS/HR; Start 09/15/18 at 11:43 Oxycodone/ Acetaminophen (Percocet (5/ 325)) 2 tab Q4H PRN PO PAIN Last administered on 09/17/18at 05:15; Admin Dose 2 TAB; Start 09/15/18 at 12:00 Morphine Sulfate (morphine) 5 mg Q4H PRN IV PAIN LEVEL 7-10; Start 09/15/18 at 12:00 Ondansetron HCl (Zofran Inj) 4 mg Q4H PRN IV NAUSEA AND/OR VOMITING Last administered on 09/16/18 17:16; Admin Dose 4 MG; Start 09/15/18 at 12:00 Diphenhydramine HCl (Benadryl) 25 mg Q4H PRN PO ITCHING; Start 09/15/18 at 12:00 Rivaroxaban (Xarelto) 10 mg WITH DINNER PO Last administered on 09/16/18at 17:35; Admin Dose 10 MG; Start 09/16/18 at 17:35 Hydromorphone HCl (Dilaudid DIRECTOR EXECUTIVE COMMUNICATIONS) 0.2 MG LOAD 0 MG/ ... Q4PCA IV Last administered on 09/15/18at 13:09; Admin Dose 6 MG; Start 09/15/18 at 12:40 Estradiol (Estrace) 1 mg DAILY PO Last administered on 09/16/18at 14:22; Admin Dose 1 MG; Start 09/16/18 at 09:00 Atorvastatin Calcium (Lipitor) 10 mg DAILY@21 PO ; Start 09/15/18 at 21:00 Alprazolam (Xanax) 0.125 mg BID PRN PO ANXIETY Last administered on 09/15/18at 2 1:08; Admin Dose 0.125 MG; Start 09/15/18 at 21:00 CHELE GRIFFIN MD Sep 17, 2018 07:46
[2018-09-17 07:58] VITALS: BP 122/60; PULSE 79; RESP 22
--- NOTE | 2018-09-17 08:39 | CONS ---
Assessment/Plan Assessment/Plan Assessment/Plan (Daily) 1. Stable post op 2. No rec of A fib but episode of SVT last night, asx, 5 sec, rate 130+, await cards eval, low dose beta lulú needed on dc and will need follow up cards eval---stress study 3. Labs pending from this am--await mag and K 4. Can dc if ok with cards- 5. Neck "lesion" seems to be consistent with "bruise" has not inc Consultation Date/Type/Reason Admit Date/Time Sep 15, 2018 at 15:23 Initial Consult Date Date/Time of Note DATE: 09/17/18 TIME: 08:37 Detailed Summary Respiratory: No shortness of breath Cardiovascular: No chest pain, No lightheadedness, No orthopenea, No palpitations Gastrointestinal: no complaints Genitourinary: no complaints Musculoskeletal: other (mild right shoulder pain) Exam/Review of Systems Exam Vitals Vital Signs Date Temp Pulse Resp B/P (MAP) Pulse Ox O2 O2 Flow FiO2 Time Delivery Rate 09/17/18 98.1 79 22 122/60 96 Room Air 07:58 (80) 09/16/18 2.0 06:00 Intake and Output 09/16/18 09/16/18 09/17/18 1515:00 23:00 07:00 IntakeIntake Total 420 ml 425 ml 710 ml OutputOutput Total 370 ml 550 ml BalanceBalance 50 ml -125 ml 710 ml Neck: No jvd Respiratory: clear to auscultation Cardiovascular: regular rate and rhythm Gastrointestinal: soft Skin: other (no change in neck erythema) Results Result Diagram: 09/17/18 0645 09/16/18 0430 Results 24hrs Laboratory Tests Test 09/16/18 10:05 09/17/18 06:45 Creatine Kinase 132 Creatine Kinase Index 4.3 Creatinine Kinase MB (Mass) 5.67 H Troponin I 0.598 *H White Blood Count 7.3 # Red Blood Count 3.13 L Hemoglobin 9.3 L Hematocrit 28.9 L Mean Corpuscular Volume 92.3 Mean Corpuscular Hemoglobin 29.7 Mean Corpuscular Hemoglobin Concent 32.2 Red Cell Distribution Width 13.7 Platelet Count 177 Mean Platelet Volume 11.0 H Immature Granulocytes % 0.300 Neutrophils % 74.7 Lymphocytes % 15.1 Monocytes % 8.6 Eosinophils % 1.0 Basophils % 0.3 Nucleated Red Blood Cells % 0.0 Immature Granulocytes # 0.020 Neutrophils # 5.5 Lymphocytes # 1.1 Monocytes # 0.6 Eosinophils # 0.1 Basophils # 0.0 Nucleated Red Blood Cells # 0.0 Medications Medication Current Medications Senna/Docusate Sodium (Senokot-S) 1 tab BID PO Last administered on 09/16/18 20:12; Admin Dose 1 TAB; Start 09/15/18 at 21:00 Magnesium Hydroxide (Milk Of Mag) 30 ml HS PO ; Start 09/17/18 at 21:00 Bisacodyl (Dulcolax Supp) 10 mg DAILY PRN [place] CONSTIPATION; Start 09/15/18 at 12:00 Sodium Chloride 1,000 ml @ 30 mls/hr Q24H IV Last administered on 09/17/18 05:16; Admin Dose 30 MLS/HR; Start 09/15/18 at 11:43 Oxycodone/ Acetaminophen (Percocet (5/ 325)) 2 tab Q4H PRN PO PAIN Last administered on 09/17/18 05:15; Admin Dose 2 TAB; Start 09/15/18 at 12:00 Morphine Sulfate (morphine) 5 mg Q4H PRN IV PAIN LEVEL 7-10; Start 09/15/18 at 12:00 Ondansetron HCl (Zofran Inj) 4 mg Q4H PRN IV NAUSEA AND/OR VOMITING Last administered on 09/16/18 17:16; Admin Dose 4 MG; Start 09/15/18 at 12:00 Diphenhydramine HCl (Benadryl) 25 mg Q4H PRN PO ITCHING; Start 09/15/18 at 12:00 Rivaroxaban (Xarelto) 10 mg WITH DINNER PO Last administered on 09/16/18 17:35; Admin Dose 10 MG; Start 09/16/18 at 17:35 Hydromorphone HCl (Dilaudid VISUAL EDUCATION DIRECTOR) 0.2 MG LOAD 0 MG/ ... Q4PCA IV Last administered on 09/15/18 13:09; Admin Dose 6 MG; Start 09/15/18 at 12:40 Estradiol (Estrace) 1 mg DAILY PO Last administered on 09/16/18 14:22; Admin Dose 1 MG; Start 09/16/18 at 09:00 Atorvastatin Calcium (Lipitor) 10 mg DAILY@21 PO ; Start 09/15/18 at 21:00 Alprazolam (Xanax) 0.125 mg BID PRN PO ANXIETY Last administered on 09/15/18at 21:08; Admin Dose 0.125 MG; Start 09/15/18 at 21:00 FRED MARKS MD Sep 17, 2018 08:39
[2018-09-17] MEDS: SENNA/DOCUSATE NA (8.6MG/50MG) TAB PO SCH (08:59)
[2018-09-17] MEDS: ESTRADIOL 1 MG TAB PO SCH (08:59)
[2018-09-17] MEDS ORDERED: METOPROLOL (XL) 25 MG TAB PO STA (11:56)
[2018-09-17 11:58] VITALS: BP 139/64; PULSE 81; RESP 22
[2018-09-17] MEDS ORDERED: POTASSIUM CHLORIDE (SR) 20 MEQ TAB PO STA ×2 (12:32→12:51)
--- NOTE | 2018-09-17 12:52 | CONS ---
Assessment/Plan Assessment/Plan Hospital Course (Demo Recall) New onset postoperative atrial fibrillation, currently sinus rhythm Postoperative hypotension, resolved Preserved left ventricular ejection fraction Mildly elevated troponin, trending down Status post orthopedic shoulder surgery Patient postoperatively with hypotension and atrial fibrillation. Blood pressure currently stable and is returned to sinus rhythm Troponins mildly elevated and trending down, ECG with no significant ischemic abnormalities. This is likely secondary to hypotension and atrial fibrillation with rapid ventricular rates. Given asymptomatic, normal ECG and preserved left ventricular ejection fraction, would consider outpatient ischemic evaluation CT pulmonary angiogram with no evidence of pulmonary emboli Brief SVT overnight, given history of recent atrial fibrillation and SVT, would start Toprol-XL 25 mg daily We will order potassium supplementation DC planning Consultation Date/Type/Reason Admit Date/Time Sep 15, 2018 at 15:23 Initial Consult Date Type of Consult Cardiology Date/Time of Note DATE: 09/17/18 TIME: 12:49 24 HR Interval Summary Free Text/Dictation No chest pain, palpitations, shortness of breath or dizziness Exam/Review of Systems Vital Signs Vitals Vital Signs Date Temp Pulse Resp B/P (MAP) Pulse Ox O2 O2 Flow FiO2 Time Delivery Rate 09/17/18 97.0 81 22 139/64 96 Room Air 11:58 (89) 09/16/18 2.0 06:00 Intake and Output 09/16/18 09/16/18 09/17/18 1515:00 23:00 07:00 IntakeIntake Total 420 ml 425 ml 710 ml OutputOutput Total 370 ml 550 ml BalanceBalance 50 ml -125 ml 710 ml Exam Exam No apparent distress Constitutional: alert, oriented Head: normocephalic Respiratory: other (Coarse breath sounds bilaterally, no wheezing) Cardiovascular: regular rate and rhythm (S1-S2 heard) Gastrointestinal: soft, non-tender, bowel sounds Extremities: other (No significant edema) Labs Result Diagram: 09/17/18 0645 09/17/18 0645 Results 24hrs Laboratory Tests Test 09/17/18 06:45 White Blood Count 7.3 # Red Blood Count 3.13 L Hemoglobin 9.3 L Hematocrit 28.9 L Mean Corpuscular Volume 92.3 Mean Corpuscular Hemoglobin 29.7 Mean Corpuscular Hemoglobin Concent 32.2 Red Cell Distribution Width 13.7 Platelet Count 177 Mean Platelet Volume 11.0 H Immature Granulocytes % 0.300 Neutrophils % 74.7 Lymphocytes % 15.1 Monocytes % 8.6 Eosinophils % 1.0 Basophils % 0.3 Nucleated Red Blood Cells % 0.0 Immature Granulocytes # 0.020 Neutrophils # 5.5 Lymphocytes # 1.1 Monocytes # 0.6 Eosinophils # 0.1 Basophils # 0.0 Nucleated Red Blood Cells # 0.0 Sodium Level 142 Potassium Level 3.4 L Chloride Level 110 Carbon Dioxide Level 29 Anion Gap 3 L Blood Urea Nitrogen 7 Creatinine 0.50 Est Glomerular Filtrat Rate mL/min Glucose Level 103 Calcium Level 7.4 L Phosphorus Level 1.6 #L Magnesium Level 2.7 #H Medications Medications Current Medications Senna/Docusate Sodium (Senokot-S) 1 tab BID PO Last administered on 09/17/18at 08:59; Admin Dose 1 TAB; Start 09/15/18 at 21:00 Magnesium Hydroxide (Milk Of Mag) 30 ml HS PO ; Start 09/17/18 at 21:00 Bisacodyl (Dulcolax Supp) 10 mg DAILY PRN [place] CONSTIPATION; Start 09/15/18 at 12:00 Sodium Chloride 1,000 ml @ 30 mls/hr Q24H IV Last administered on 09/17/18at 05:16; Admin Dose 30 MLS/HR; Start 09/15/18 at 11:43 Oxycodone/ Acetaminophen (Percocet (5/ 325)) 2 tab Q4H PRN PO PAIN Last administered on 09/17/18at 05:15; Admin Dose 2 TAB; Start 09/15/18 at 12:00 Morphine Sulfate (morphine) 5 mg Q4H PRN IV PAIN LEVEL 7-10; Start 09/15/18 at 12:00 Ondansetron HCl (Zofran Inj) 4 mg Q4H PRN IV NAUSEA AND/OR VOMITING Last administered on 09/16/18at 17:16; Admin Dose 4 MG; Start 09/15/18 at 12:00 Diphenhydramine HCl (Benadryl) 25 mg Q4H PRN PO ITCHING; Start 09/15/18 at 12:00 Rivaroxaban (Xarelto) 10 mg WITH DINNER PO Last administered on 09/16/18at 1 7:35; Admin Dose 10 MG; Start 09/16/18 at 17:35 Hydromorphone HCl (Dilaudid PROJECT BUYER) 0.2 MG LOAD 0 MG/ ... Q4PCA IV Last administered on 09/15/18at 13:09; Admin Dose 6 MG; Start 09/15/18 at 12:40 Estradiol (Estrace) 1 mg DAILY PO Last administered on 09/17/18at 08:59; Admin Dose 1 MG; Start 09/16/18 at 09:00 Atorvastatin Calcium (Lipitor) 10 mg DAILY@21 PO ; Start 09/15/18 at 21:00 Alprazolam (Xanax) 0.125 mg BID PRN PO ANXIETY Last administered on 09/15/18at 21:08; Admin Dose 0.125 MG; Start 09/15/18 at 21:00 Metoprolol Succinate (Toprol Xl) 25 mg DAILY PO ; Start 09/18/18 at 09:00 Christian Delvalle DO Sep 17, 2018 12:52
[2018-09-17 15:58] VITALS: BP 134/62; PULSE 84; RESP 22
--- NOTE | 2018-09-17 16:33 | RADRPT ---
Vent Rate: 81 bpm RR Interval: 744 msec [place] Interval: 140 msec QRS Duration: 99 msec QT Interval: [id number] msec QTC Interval: 0 msec P-R-T [place]: 57 - -7 - 40 degrees Sinus rhythm...normal P axis, V-rate 50- 99 Electronically Signed By: Ramy Steel
--- NOTE | 2018-09-17 16:34 | RADRPT ---
Vent Rate: 106 bpm RR Interval: 565 msec [place] Interval: [id number] msec QRS Duration: 100 msec QT Interval: 344 msec QTC Interval: 458 msec P-R-T [place]: [id number] - -10 - 225 degrees Atrial fibrillation...? atrial activity Low voltage, precordial leads...precordial leads <1.0mV Nonspecific repol abnormality, diffuse leads...ST dep, T flat/neg, ant/lat/inf Electronically Signed By: Ramy Steel
[2018-09-17] MEDS: RIVAROXABAN 10 MG TABLET PO SCH (17:31)
[2018-09-17] MEDS ORDERED: METO-335 PO (17:43)
[2018-09-17] MEDS ORDERED: MAGNESIUM HYDROXIDE 30ML CUP PO SCH (21:00)
[2018-09-18] MEDS ORDERED: METOPROLOL (XL) 25 MG TAB PO SCH (09:00)
--- NOTE | 2018-09-18 09:12 | DS ---
DATE OF ADMISSION: 09/15/2018 DATE OF DISCHARGE: 09/17/2018 This is an 83-year-old female admitted for elective right shoulder cuff repair, who postoperatively d eveloped a rapid atrial fibrillation and hypotension who was, otherwise, in good health. PERTINENT EXAMINATION: By me revealed: VITAL SIGNS: Blood pressure of 82/70, pulse was irregularly irregular 106, respirations were 18. Sh e was afebrile. HEART: There was no evidence of congestive heart failure. LABORATORY AND DIAGNOSTIC STUDIES: On admission, hematocrit 34.7, on discharge 28.9. White count wa s normal, platelet count was normal. Chemistries on 09/15, sodium 146, potassium 3.4, chloride 117, CO2 21, BUN 14, creatinine 0.57. Magnesium was 1.7. TSH was normal. Troponin on 09/15/2018 was les s than [id number] was 0.246. On 09/16/2018, 0.611 and repeat on 09/16/2018 p.m. 0.598. Echocardiogram reviewed by cardiology revealed no abnormalities. Venous vascular study of the lower extremities wa s negative. CT pulmonary angiogram revealed no evidence of pulmonary embolism. The thoracic aorta w ith atherosclerotic cardiomegaly was noted. There was small bilateral effusions. HOSPITAL COURSE: The patient was volume expanded rapidly required a brief course of Jovanni-Synephrine t o maintain a blood pressure. She spontaneously converted to sinus rhythm. She was seen in cardiolog y by Dr. Delvalle. The rapid the rise in her troponins was thought not related to ischemia, but likely dysrhythmia. During her hospitalization, she had no evidence of chest pain, orthopnea, PND or pleur itic chest discomfort. Right shoulder remained problematic with respect to pain. She did have posto peratively some ecchymoses involving the suprasternal area that did not worsen during her hospitaliza tion. DISCHARGE DIAGNOSES: 1. Status postop repair of right shoulder, status postop right shoulder surgery. 2. Rapid atrial fibrillation and hypotension, resolved. 3. Elevated troponin, probably related to above, will be pursued as an outpatient where coronary art jennifer disease will be excluded. 4. Mild anemia. Iron has been recommended b.i.d. with food. Repeat labs will be needed in 1 month. Her course will be reviewed with her primary physician, Dr. Baldo Vieds in [place]. MEDICATONS ON DISCHARGE: Include metoprolol 25 mg per day, Estradiol 1 mg per day, simvastatin 5 mg daily and pain meds as recommended by ortho. Dictated By: FRED CAMERON/TRISHA Conf#: [id number] DID#: [id number] CC: CHELE GRIFFIN MD;*EndCC*
--- NOTE | 2018-09-19 10:49 | DS ---
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 SURGERY: On 09/15/2018 arthroscopy right shoulder, extensive debridement, subacromial decompression, Wolfgang excision distal clavicle, repair rotator cuff. HISTORY OF PRESENT ILLNESS: The patient is an 83-year-old right-handed female with severe pain in th e right shoulder, admitted now for rotator cuff repair. PAST MEDICAL HISTORY: See the history and physical record. PHYSICAL EXAMINATION: Normal except the orthopedic exam which revealed severe pain in the shoulder w ith a positive impingement test and weakness in the rotator cuff. LABORATORY: Normal. Chest x-ray was stable. EKG was stable. HOSPITAL COURSE: The patient taken to the operating room and underwent above-mentioned procedure. I n the recovery room the patient developed PAC's and dropped her blood pressure. She was seen by Dr. Thomas Hung as well as a upper leather sorter. She was transferred to the ICU. She converted on nitrates ba ck to the sinus rhythm. Her pressure came back up and she was fine. She was up walking on the d postoperative day and will be discharged after the dressings were changed. She was discharged on p ain medication, to be followed in the office in 1 week. She will also be followed up by her primary care doctor and her upper leather sorter. Dictated By: CHELE BURRIS/TRISHA Conf#: [id number] DID#: [id number]
--- NOTE | 2018-09-23 08:01 | QN ---
Documentation Comment PLEASE NOTE condition on dc was stable FRED MARKS MD Sep 23, 2018 08:01
== END 2018-09-17 18:15 | disposition home or self-care (01) | DRG 507 ==
LOC: SDS 05:22 → REC 11:43 → OBSVTOIN 15:23 → ICU 15:46 → TEL 09-16 23:52
PROVIDERS: ADMIT Orthopaedic Surgery; ATTEND Orthopaedic Surgery
PROC: 0RHJ44Z Insertion of Internal Fixation Device into Right Shoulder Joint, Percutaneous Endoscopic Approach (ICD-10-PCS; 2018-09-15)
PROC: 0RNJ4ZZ Release Right Shoulder Joint, Percutaneous Endoscopic Approach (ICD-10-PCS; 2018-09-15)
PROC: 0PT90ZZ Resection of Right Clavicle, Open Approach (ICD-10-PCS; 2018-09-15)
PROC: 0LQ14ZZ Repair Right Shoulder Tendon, Percutaneous Endoscopic Approach (ICD-10-PCS; principal; 2018-09-15 07:00)
DX: M75.41 Impingement syndrome of right shoulder (principal); S46.121A Laceration of muscle, fascia and tendon of long head of biceps, right arm, initial encounter; I47.1 Supraventricular tachycardia; M75.101 Unspecified rotator cuff tear or rupture of right shoulder, not specified as traumatic; I48.91 Unspecified atrial fibrillation; R00.1 Bradycardia, unspecified; M19.011 Primary osteoarthritis, right shoulder; E78.5 Hyperlipidemia, unspecified; X58.XXXA Exposure to other specified factors, initial encounter; M94.211 Chondromalacia, right shoulder; M65.811 Other synovitis and tenosynovitis, right shoulder; M75.51 Bursitis of right shoulder; I95.81 Postprocedural hypotension; R79.9 Abnormal finding of blood chemistry, unspecified; D64.9 Anemia, unspecified
CPT/HCPCS: 71275; 80048; 82550; 82553; 83735; 84100; 84443; 84484; 85025; 87081; 93005; 93306; 93970; 97161; C1713; G0378; J0690; J1100; J1170; J1200; J2250; J2270; J2370; J2405; J2710; J2795; J3010; J3475; J7030; P9045